=== PATIENT | male | born 2000 | race Caucasian/White ===

== ENCOUNTER 2022-03-14 21:05 | Emergency (ER) | payer OTHER, SELFPAY ==
[2022-03-14] VITALS (23 sets, daily range): BP systolic 116–136; BP diastolic 54–97; PULSE 71–114; RESP 1–20; TEMP 36.4; O2SAT 95–100
--- NOTE | 2022-03-14 21:00 | RT.EKG_ITS ---
APPROVED REPORT Exam: Resting ECG Reason for Exam: short of breath Patient Location: E HR:83 bpm ECG Measurements Heart Rate 83 AXIS NV 134 P 79 QRSd 96 QRS 87 QT 354 T 36 QTc 415 Conclusion Sinus rhythm..normal P axis Right atrial enlargement.
--- NOTE | 2022-03-14 21:15 | DI.RAD_ITS ---
Exam(s) XR PORTABLE CHEST AP EXAM: XR PORTABLE CHEST AP CLINICAL HISTORY: SOB cough TECHNIQUE: 2D digital imaging was performed. COMPARISON: No exams were available for comparison FINDINGS: LUNGS: Clear. No pleural abnormality seen. HEART: Normal size. AORTA: Normal diameter. BONES: Unremarkable for age. Soft tissues: Unremarkable. IMPRESSION: No acute findings. DATA REPOSITORY: RADIATION DOSE DELIVERED:
[2022-03-14] MEDS: Albuterol 2.5 MG/3 ML INH SOLN VIAL UPD (21:23)
--- NOTE | 2022-03-14 21:48 | ED.GENADUL_ITS ---
Discharge Plan Disposition Patient Disposition: Home Condition: Stable Discharge Details Clinical Impression: RAD (reactive airway disease) with wheezing Primary Care Provider: Unknown,Unknown ED Provider: Stefan Sun Home Meds and New Rx's Prescriptions: Continued loratadine 10 MG tablet 10 mg PO DAILY Discharge Instructions Instructions: Reactive Airways Disease (ED) Additional Instructions: Please resume your daily allergy medication as I feel that the exposure to dander may have triggered some of your symptoms. Otherwise monitor your symptoms and if you have any new or significant worsening of your condition return the emergency department for reassessment. You may use the provided inhaler as directed for further chest tightness but if you need to use this more than 2 times in a row or more often than prescribed return immediately to the emergency department. Referrals: Primary Care Provider [Outside] (If not improving follow-up with your primary care provider for recheck of your symptoms) Discharge Data Discharge Date/Time-TO BE ENTERED AT DEPARTURE: 03/14/22 23:00 Medical Decision Making Patient presenting to the emergency department for chief complaint of shortness of breath, cough, and nasal congestion for the past 2 days. He does state that his boss recently tested positive for COVID and he saw them at the end of last week but he was masked at that time. Patient states he is otherwise healthy and vaccinated against COVID. Physical exam is positive for diffuse wheezing but otherwise clear lung sounds, patient is not hypoxic, was not tachycardic on my exam, stable vital signs, remainder of exam is again unremarkable. Given that patient is stating shortness of breath and has wheeze we will perform chest x- ray, EKG, and viral pathogen panel. At this point I doubt ACS given low risk factors so we will hold off on labs. Also given that patient has wheeze diffusely, not tachycardic or hypoxic on my exam I doubt PE. Pending results will give albuterol Please see physician interpretation for full interpretation of EKG but on my rev iew patient is in sinus rhythm, rate in the 80s, no acute ischemic findings. Review of chest x-ray and radiologist interpretation shows no acute findings. Fluvid also is negative for COVID flu and RSV. Patient reassessed and stated full improvement of symptoms. Further discussed other potential causes and he does state that he was around a dog which he does have allergen symptoms from pet dander. Feel this may be a contributing cause given that patient has no fever chills or other symptoms. We will send patient home with inhaler. Did discuss potential additional labs that could be performed but at this time I have low suspicion of those. Patient stated since he has pretty much full improvement of respiratory symptoms that he feels comfortable going homeand does not want labs done. After discussion of diagnosis and plan of care patient has no further needs, questions, or concerns and states clear understanding to return to the emergency department for any worsening symptoms. This documentation was generated using [employer] system, please disregard any oddities of phrase or misspellings. Imaging Data Radiologic Study: Attestation: I personally reviewed and interpreted this imaging study as follows: Imaging: X-Ray Radiologist's impression: Exam: XR Chest Exam date and time: 03/14/2022 9:37 PM Age: 21 years old Clinical indication: Cough and shortness of breath; Patient HX: SOB, cough TECHNIQUE: Imaging protocol: Radiologic exam of the chest. Views: 1 view. COMPARISON: No relevant prior studies available. FINDINGS: Lungs: The lungs are clear without infiltrate or edema. Pleural spaces: No pleural effusion. No pneumothorax. Heart/Mediastinum: The cardiac silhouette is normal in size. Bones/joints: No acute osseous abnormality. IMPRESSION: No acute findings. HPI General Mode of arrival: ambulatory . Date/Time Provider Initiated Documentation: 03/14/22 21:06 . Limitations to Documentation: no limitations . Information obtained by: patient and RN notes reviewed . History of Present Illness 21 year old M presents to the emergency department with the chief complaint of Chest tightness and coughing, described as moderate, and is localized to the chest. Patient reports no radiation. Patient started experiencing this day(s) (2) and it has been constant. No relieving factors improve symptom(s), No exacerbating factors reported . Patient notes no other symptoms.. Patient did receive the following treatments prior to arrival, none Related Data Home Medications Medication Instructions Recorded Confirmed loratadine 10 mg tablet 10 mg PO DAILY 12/03/15 02/09/19 Allergies Allergy/AdvReac Type Severity Reaction Status Date / Time cat dander Allergy Verified 02/09/19 14:16 General Stated Complaint: SOB RADHA: 3 Review of Systems Constitutional Constitutional: Denies chills, Denies fever(s), Denies headache(s) and Denies malaise ENT Ears, Nose, Mouth, and Throat: Denies headache(s), Reports nasal congestion and Reports sore throat Cardiovascular Cardiovascular: Denies chest pain and Reports dyspnea Respiratory Respiratory: Reports cough, Reports dyspnea and Reports wheezing Gastrointestinal Gastrointestinal: Reports system reviewed and no additional complaints, except as documented Integumentary/Breasts Skin/Breast: Reports system reviewed and no additional complaints, except as documented Neurologic Neurologic: Denies headache(s) Allergic/Immunologic Allergic/Immunologic: Reports wheezing PFSH All Active Problems RAD (reactive airway disease) with wheezing (Acute) Routine child health exam (Acute 10/23/12) Pes planus (Acute 10/23/12) Normal weight, pediatric, BMI 5th to 84th percentile for age (Acute 09/25/14) Constipation (Acute 10/23/12) Child in care of non-parental family member (Acute 09/25/14) Living with grandparents. No contact with mom. Allergic rhinitis (Acute 10/23/12) Medical History Acne CAT ALLERGY Headache Pneumonia Speech/language delay Needed [employer] services when he was younger. Vision problem WEARS GLASSES Surgical History Circumcision Family History Mother Alcohol abuse Mental disorder DEPRESSON Father No problems noted. Grandparents Diabetes Neoplasm Social History Smoking/Tobacco Use Status: Never Second Hand Exposure: No Smoking risk assessment performed?: Yes Drug use: Never Substance use type: does not use Pets and animals: No Do you feel safe at home: Yes Do you feel safe in your relationship?: Yes Exam Const General: cooperative, comfortable and no acute distress Orientation: alert and awake [facility] Head: normal to inspection, normocephalic and atraumatic Ears: hearing grossly normal bilaterally and TM's normal bilaterally General nose exam: external nose normal Face and sinus: no erythema Mouth: oral mucosae normal, no drooling, no muffled voice and no trismus Throat: posterior oropharynx normal Neck Neck: normal visual inspection, full ROM, no lymphadenopathy, no meningeal signs, trachea midline and supple Resp Effort & Inspection: normal respiratory effort and able to speak in complete sentences Auscultation: wheezes expiratory wheezes and scattered wheezes Cardio Rate: regular rate Rhythm: regular rhythm Heart Sounds: S1 normal, S2 normal, normal S1 and S2, no click, no gallops, no murmurs and no rubs Skin General skin exam: no rashes or lesions noted and dry skin (warm) Neuro General: patient alert, patient awake, patient oriented x3, gait normal and moves all extremities Cognition: normal cognition Speech: speech normal Course Vital Signs Vital signs: Vital Signs Temperature 36.4 C L 03/14/22 21:10 Pulse 114 H 03/14/22 21:10 Respiratory Rate 18 03/14/22 21:10 Blood Pressure 128/84 03/14/22 21:10 Pulse Oximetry 97 03/14/22 21:10 Temperature 36.4 C L 03/14/22 21:10 Temperature Source Oral 03/14/22 21:10 Pulse 114 H 03/14/22 21:10 Respiratory Rate 16 03/14/22 21:23 Respiratory Effort 03/14/22 21:15 Respiratory Depth Normal 03/14/22 21:15 Respiratory Pattern Normal 03/14/22 21:15 Blood Pressure 128/84 03/14/22 21:10 Blood Pressure Position Sitting 03/14/22 21:10 Pulse Oximetry 100 03/14/22 21:23 Oxygen Delivery Method Room Air 03/14/22 21:23 Oxygen Flow Rate 0 03/14/22 21:23 Pain Level 5 03/14/22 21:10
[2022-03-14 22:01] LABS: COVID-19 PCR Negative (Negative); Influenza A PCR Negative (Negative); Influenza B PCR Negative (Negative); RSV PCR Negative (Negative)
--- NOTE | 2022-03-14 22:09 | DI.VRAD_ITS ---
PROCEDURE INFORMATION: Exam: XR Chest Exam date and time: 03/14/2022 9:37 PM Age: 21 years old Clinical indication: Cough and shortness of breath; Patient HX: SOB, cough TECHNIQUE: Imaging protocol: Radiologic exam of the chest. Views: 1 view. COMPARISON: No relevant prior studies available. FINDINGS: Lungs: The lungs are clear without infiltrate or edema. Pleural spaces: No pleural effusion. No pneumothorax. Heart/Mediastinum: The cardiac silhouette is normal in size. Bones/joints: No acute osseous abnormality. IMPRESSION: No acute findings. Dictated and Authenticated by: Adalgisa Garcia MD. Ordering:SABINO Aviles MD
[2022-03-14 22:10] LABS: Source Nasopharynx
[2022-03-14] MEDS: Inhaler, Assist Device 1 EACH MC (22:51)
[2022-03-14] MEDS: Albuterol HFA 8 GM 60 PUFF INH IH (22:51)
== END 2022-03-14 23:00 | disposition home or self-care (01) ==
PROVIDERS: Emergency Provider Nurse Practitioner Family
DX: J45.909 Unspecified asthma, uncomplicated (principal); Z20.822 Contact with and (suspected) exposure to COVID-19
CPT/HCPCS: 87637; 93005; 94640; 99284; 71045; 93010; 99285; J7613